=== PATIENT | male | born 1965 | race Caucasian/White ===

== ENCOUNTER 2017-08-15 19:31 | Emergency (ER) | payer MEDICAID ==
[~2017-08-15] VITALS: Wt 72.7 kg
[2017-08-15] MEDS ORDERED: diphenhydrAMINE 50 mg/ml inj IM ONE (19:50)
[2017-08-15] MEDS ORDERED: haloperidol lactate 5mg/ml inj IM ONE (19:50)
[2017-08-15 19:55] LABS: BASOPHILS % (AUTO) 0.4 % (0-1); EOSINOPHILS % (AUTO) 0.3 % (0-6); HEMOGLOBIN 13.8 g/dl (14.0-17.9); LYMPHOCYTES # (AUTO) 1.4 X10'3 (1.1-4.8); LYMPHOCYTES % (AUTO) 17.6 % (21-51); MEAN CORPUSCULAR HEMOGLOBIN 34.4 PG (27.0-31.0); MEAN CORPUSCULAR HGB CONC 35.4 % (33.0-36.5); MEAN CORPUSCULAR VOLUME 97.4 FL (78-98); MEAN PLATELET VOLUME 8.8 FL (7.4-10.4); MONOCYTES # (AUTO) 0.9 X10'3 (0-0.9); NEUTROPHILS # (AUTO) 5.8 X10'3 (1.8-7.7); NEUTROPHILS % (AUTO) 70.7 % (42-75); PLATELET COUNT 259 X10'3 (140-440); RED CELL DISTRIBUTION WIDTH 16.4 % (11.5-14.5); WHITE BLOOD COUNT 8.1 X10'3 (4.5-11.0)
[2017-08-15 20:19] LABS: ALANINE AMINOTRANSFERASE 30 U/L (12-78); ALBUMIN 4.1 G/DL (3.4-5.0); ALBUMIN/GLOBULIN RATIO 1.2 (1.1-1.5); ALKALINE PHOSPHATASE 57 IU/L (46-116); ANION GAP 13 (8-16); ASPARTATE AMINO TRANSFERASE 27 U/L (10-37); BLOOD UREA NITROGEN 26 MG/DL (7-18); BUN/CREATININE RATIO 28.6 (5.4-32.0); CALCIUM 9.4 MG/DL (8.5-10.1); CHLORIDE 100 MMOL/L (99-107); CREATININE 0.91 MG/DL (0.60-1.10); ETHANOL < 0.010 GM/DL (0.0-0.010); GLUCOSE 77 MG/DL (70-104); POTASSIUM 3.8 MMOL/L (3.5-5.1); SODIUM 138 MMOL/L (135-145); TOTAL CARBON DIOXIDE 24.8 MMOL/L (24-32); TOTAL PROTEIN 7.6 G/DL (6.4-8.2); eGFR 88 ML/MIN
[2017-08-15 20:40] LABS: URINE AMPHETAMINE SCREEN NEGATIVE (Neg); URINE BARBITUATE SCREEN NEGATIVE (Neg); URINE BENZODIAZEPINES SCREEN NEGATIVE (Neg); URINE CANNABINOID SCREEN POSITIVE (Neg); URINE COCAINE SCREEN NEGATIVE (Neg); URINE METHADONE SCREEN NEGATIVE (Neg); URINE OPIATE SCREEN NEGATIVE (Neg); URINE PHENCYCLIDINE SCREEN NEGATIVE (Neg)
[2017-08-15] MEDS ORDERED: UNABLE TO OBTAIN (21:05)
[2017-08-16] MEDS ORDERED: LORazepam 1 MG tablet PO PRN (19:40)
[2017-08-18 16:55] VITALS: BP 108/76
== END 2017-08-18 17:01 ==
LOC: ER 19:31
DX: F29 Unspecified psychosis not due to a substance or known physiological condition (principal); S00.81XA Abrasion of other part of head, initial encounter; Z59.0 Homelessness; Z56.0 Unemployment, unspecified; X58.XXXA Exposure to other specified factors, initial encounter; Y93.89 Activity, other specified; Y92.89 Other specified places as the place of occurrence of the external cause; Y99.8 Other external cause status
CPT/HCPCS: 36415; 80053; 80305; 80320; 84443; 85025; 96372; 99285; A4353; J1200; J1630

== ENCOUNTER 2018-05-31 16:30 | Inpatient (IN) | payer MEDICAID | END 2018-06-13 20:24 | disposition still patient (30) | LOC: ADULT MH 16:30 | DX: F23 Brief psychotic disorder (principal); R52 Pain, unspecified ==

== ENCOUNTER 2019-06-06 18:28 | Inpatient (IN) | payer MEDICAID ==
[~2019-06-06] VITALS: Ht 180.3 cm; Wt 81.0 kg
[~2019-06-06 18:28] MED LIST: DIPH50CA3 PO; HALO5TAB PO; RISP4TAB2 PO; etomidate 2mg/ml inj. ONE
--- NOTE | 2019-06-06 19:10 | NUR ---
OUT TO CT ON MONITOR WITH CHRISTIAN ASHBY
[2019-06-06] MEDS ORDERED: iohexol 300mg/ml 100ml inj. ONE (19:11)
[2019-06-06 19:27] LABS: BASOPHILS # (AUTO) 0.1 X10'3 (0-0.2); BASOPHILS % (AUTO) 0.3 % (0-1); EOSINOPHILS % (AUTO) 0.2 % (0-6); HEMATOCRIT 36.8 % (42.0-52.0); HEMOGLOBIN 12.9 g/dl (14.0-17.9); LYMPHOCYTES # (AUTO) 0.8 X10'3 (1.1-4.8); LYMPHOCYTES % (AUTO) 5.4 % (21-51); MEAN CORPUSCULAR HGB CONC 35.1 g/dL (33.0-36.5); MEAN CORPUSCULAR VOLUME 88.4 FL (78-98); MEAN PLATELET VOLUME 9.7 FL (7.4-10.4); MONOCYTES # (AUTO) 1.2 X10'3 (0-0.9); MONOCYTES % (AUTO) 7.5 % (2-12); NEUTROPHILS # (AUTO) 13.6 X10'3 (1.8-7.7); NEUTROPHILS % (AUTO) 86.6 % (42-75); PLATELET COUNT 205 X10'3 (140-440); RED BLOOD COUNT 4.17 X10'6 (4.70-6.10); RED CELL DISTRIBUTION WIDTH 14.3 % (11.5-14.5); WHITE BLOOD COUNT 15.7 X10'3 (4.5-11.0)
[2019-06-06 19:30] LABS: CLARITY,URINE SLIGHTLY CLOUDY (Clear); COLOR,URINE AMBER (Yellow); GLUCOSE, URINE NEGATIVE (Neg); KETONES,URINE 15 mg/dl (Neg); LEUKOCYTE ESTERASE ,URINE NEGATIVE (Neg); NITRITES, URINE NEGATIVE (Neg); OCCULT BLOOD,URINE TRACE-INTACT (Neg); PROTEIN,URINE TRACE mg/dl (Neg); UROBILINOGEN,URINE 0.2 E.U/dL (0.2-1.0)
[2019-06-06 19:31] LABS: UA COLLECTION TYPE STRAIGHT CATH
[2019-06-06 19:32] LABS: URINE AMPHETAMINE SCREEN NEGATIVE (Neg); URINE BARBITUATE SCREEN NEGATIVE (Neg); URINE BENZODIAZEPINES SCREEN NEGATIVE (Neg); URINE CANNABINOID SCREEN POSITIVE (Neg); URINE COCAINE SCREEN NEGATIVE (Neg); URINE METHADONE SCREEN NEGATIVE (Neg); URINE OPIATE SCREEN NEGATIVE (Neg); URINE PHENCYCLIDINE SCREEN NEGATIVE (Neg)
[2019-06-06 19:41] LABS: ALANINE AMINOTRANSFERASE 45 U/L (12-78); ALBUMIN 4.3 G/DL (3.4-5.0); ALBUMIN/GLOBULIN RATIO 1.3 (1.1-1.5); ALKALINE PHOSPHATASE 66 IU/L (46-116); ANION GAP 12 (8-16); ASPARTATE AMINO TRANSFERASE 50 U/L (10-37); BILIRUBIN,TOTAL 0.9 MG/DL (0.1-1.0); BLOOD UREA NITROGEN 26 MG/DL (7-18); BUN/CREATININE RATIO 19.7 (5.4-32.0); CALCIUM 9.5 MG/DL (8.5-10.1); CHLORIDE 100 MMOL/L (99-107); CREATININE 1.32 MG/DL (0.60-1.10); GLUCOSE 176 MG/DL (70-104); POTASSIUM 3.2 MMOL/L (3.5-5.1); SODIUM 139 MMOL/L (135-145); TOTAL CARBON DIOXIDE 27.3 MMOL/L (24-32); TOTAL PROTEIN 7.7 G/DL (6.4-8.2); eGFR 57 ML/MIN
[2019-06-06 19:43] LABS: CREATINE KINASE 790 U/L (39-308); ETHANOL < 0.010 GM/DL (0.0-0.010); TROPONIN I < 0.04 NG/ML (0.0-0.05)
[2019-06-06 19:50] LABS: BACTERIA,URINE NONE SEEN /HPF (Neg); HYALINE CASTS 0-3 /LPF (NEGATIVE); MUCUS STRANDS MODERATE /LPF (Neg); SQUAMOUS EPITHELIAL CELL,UR FEW /LPF (FEW); WBC,URINE 0-4 /HPF (0-4)
[2019-06-06] MEDS ORDERED: normal saline 1000ML IV soln IVB ONE (19:50)
--- NOTE | 2019-06-06 19:55 | NUR ---
PT GIVEN MULTIPLE WARM BLANKETS AND POSITIONED TO COMFORT. WILL CONTINUE TO MONITOR
[2019-06-06] MEDS ORDERED: ketamine 50 mg/ml 10ml vial IV ONE ×2 (20:10→20:20)
[2019-06-06] MEDS ORDERED: LIDOcaine 1.5% w/epinephrine 1:200,000 5ml ampul IJ ONE (20:10)
[2019-06-06] MEDS ORDERED: ketamine 10mg/ml 20ml inj IV ONE (20:15)
[2019-06-06] MEDS ORDERED: LIDOcaine 1% W/epiNEPHrine 1:200,000 10ml vial IJ ONE (20:15)
[2019-06-06] MEDS ORDERED: hydrOXYzine 25 MG tablet PO ONE (20:55)
[2019-06-06] MEDS ORDERED: LORazepam 1 MG tablet PO ONE (20:55)
--- NOTE | 2019-06-06 21:22 | NUR ---
PT HAS REFUSED TO GIVE INFORMATION WHEN ASKED ALTHOUGH HE IS ABLE. ASSESSMENT INVOLVING PT FEEDBACK DIFFICULT TO OBTAIN. PT APPEARS ORIENTED AFTER MOD SEDATION, BUT DOES NOT FOLLOW INSTRUCTIONS TO HOLD STILL
[2019-06-06] MEDS ORDERED: LORazepam 2 mg/ml vial IV ONE (21:25)
[2019-06-06] MEDS ORDERED: haloperidol lactate 5mg/ml inj IM ONE (21:25)
[2019-06-06] MEDS ORDERED: fentaNYL/PF 50MCG/1 ML 2ML syringe IV ONE (21:25)
[2019-06-06] MEDS ORDERED: LORazepam 2 mg/ml vial ONE (21:27)
[2019-06-06] MEDS ORDERED: DIPH-423 PO (22:37)
[2019-06-06] MEDS ORDERED: RISP4TAB2 PO (22:37)
[2019-06-06] MEDS ORDERED: HALO5TAB PO (22:37)
[2019-06-06] MEDS ORDERED: acetaminophen 325mg tablet PO PRN (23:05)
[2019-06-06] MEDS ORDERED: haloperidol lactate 5mg/ml inj IM PRN (23:05)
[2019-06-06] MEDS ORDERED: ondansetron/PF 4mg/2ml inj IV PRN (23:05)
[2019-06-06] MEDS ORDERED: LORazepam 2 mg/ml vial IV PRN (23:05)
[2019-06-06] MEDS ORDERED: morphine 2 MG/ML inj. syringe IV PRN (23:05)
[2019-06-06] MEDS ORDERED: mag hydrox/Alum hydrox/simeth 30ml oral suspension PO PRN (23:05)
--- NOTE | 2019-06-06 23:32 | NUR ---
Patient in room . I have received report from Bety ED RN and had the opportunity to ask questions and assume patient care.
[2019-06-07 00:10] VITALS: BP 110/81
--- NOTE | 2019-06-07 00:38 | NUR ---
Bladder scan performed, more than [address] Mcelroy and received order to place grijalva. Order placed.
--- NOTE | 2019-06-07 01:30 | NUR ---
16 Fr. grijalva placed, 1275 mL shi, clear, no odor urine into bag. Pt tolerated well. Will continue to monitor patient.
[2019-06-07] MEDS: potassium Cl 20mEq in NS 1,000 ML IV SCH ×3 (01:57→19:02)
--- NOTE | 2019-06-07 06:44 | NUR ---
Problems reprioritized. Patient report given, questions answered & plan of care reviewed with SYMONE Yao.
[2019-06-07 07:30] VITALS: BP 110/80
[2019-06-07 07:34] LABS: HEMOGLOBIN 13.1 g/dl (14.0-17.9); WHITE BLOOD COUNT 9.7 X10'3 (4.5-11.0)
[2019-06-07 07:48] LABS: ALANINE AMINOTRANSFERASE 37 U/L (12-78); ALBUMIN 3.7 G/DL (3.4-5.0); ALBUMIN/GLOBULIN RATIO 1.2 (1.1-1.5); ALKALINE PHOSPHATASE 61 IU/L (46-116); ANION GAP 11 (8-16); ASPARTATE AMINO TRANSFERASE 64 U/L (10-37); BILIRUBIN,TOTAL 1.2 MG/DL (0.1-1.0); BLOOD UREA NITROGEN 17 MG/DL (7-18); BUN/CREATININE RATIO 18.5 (5.4-32.0); CALCIUM 8.4 MG/DL (8.5-10.1); CHLORIDE 103 MMOL/L (99-107); CREATININE 0.92 MG/DL (0.60-1.10); GLUCOSE 81 MG/DL (70-104); POTASSIUM 3.4 MMOL/L (3.5-5.1); SODIUM 141 MMOL/L (135-145); TOTAL CARBON DIOXIDE 26.6 MMOL/L (24-32); TOTAL PROTEIN 6.8 G/DL (6.4-8.2); eGFR 86 ML/MIN
[2019-06-07 07:50] LABS: HEMATOCRIT 37.3 % (42.0-52.0); MEAN CORPUSCULAR HEMOGLOBIN 31.4 PG (27.0-31.0); MEAN CORPUSCULAR HGB CONC 35.1 g/dL (33.0-36.5); MEAN CORPUSCULAR VOLUME 89.6 FL (78-98); MEAN PLATELET VOLUME 9.2 FL (7.4-10.4); PLATELET COUNT 151 X10'3 (140-440); RED BLOOD COUNT 4.16 X10'6 (4.70-6.10)
[2019-06-07 08:12] LABS: ANISOCYTOSIS 1+; PLATELET ESTIMATE NORMAL; TOTAL CELLS COUNTED 100
[2019-06-07] MEDS: morphine 2 MG/ML inj. syringe IV PRN ×4 (08:13→22:51)
[2019-06-07 11:30] VITALS: BP 117/72
[2019-06-07 18:15] VITALS: BP 141/56
--- NOTE | 2019-06-07 18:30 | NUR ---
Patient in room [facility]. I have received report from SYMONE Yao and had the opportunity to ask questions and assume patient care.
--- NOTE | 2019-06-07 18:35 | NUR ---
Problems reprioritized. Patient report given, questions answered & plan of care reviewed with SYMONE Sutherland.
[2019-06-07] MEDS: magnesium hydroxide 30ml (MOM) UD suspension PO PRN (20:08)
--- NOTE | 2019-06-08 | NUR ---
Called MD to request to look at recent chest xray and compare with yesterday AM chest xray as patient has crepitus not only to ant/pos R shoulder but around the chest tube site. MD spoke with charge and stated that there was no new orders/ Addendum: 06/09/19 at 0722 by Jhoana Holbrook RN Patient was not and still is not exhibiting any signs of SOB/respiratory distress.
[2019-06-08 00:15] VITALS: BP 120/90
[2019-06-08] MEDS: potassium Cl 20mEq in NS 1,000 ML IV SCH (00:44)
[2019-06-08] MEDS: morphine 2 MG/ML inj. syringe IV PRN ×4 (05:12→21:02)
[2019-06-08 05:38] LABS: ALANINE AMINOTRANSFERASE 28 U/L (12-78); ALBUMIN/GLOBULIN RATIO 1.1 (1.1-1.5); ALKALINE PHOSPHATASE 52 IU/L (46-116); ANION GAP 8 (8-16); ASPARTATE AMINO TRANSFERASE 46 U/L (10-37); BILIRUBIN,TOTAL 0.7 MG/DL (0.1-1.0); BLOOD UREA NITROGEN 15 MG/DL (7-18); BUN/CREATININE RATIO 19.2 (5.4-32.0); CALCIUM 7.9 MG/DL (8.5-10.1); CHLORIDE 105 MMOL/L (99-107); CREATININE 0.78 MG/DL (0.60-1.10); GLUCOSE 108 MG/DL (70-104); POTASSIUM 3.2 MMOL/L (3.5-5.1); SODIUM 139 MMOL/L (135-145); TOTAL CARBON DIOXIDE 26.3 MMOL/L (24-32); TOTAL PROTEIN 5.8 G/DL (6.4-8.2); eGFR > 90 ML/MIN
--- NOTE | 2019-06-08 05:47 | NUR ---
Patient has not voided since FC was DC at 06/08/19 at 0016. Instructed pt multiple times to use urinal after FC was DC. Bladder scan performed, 447 mL. Pt states that he is in pain due to chest tube in place and has not been attempting to use urinal. Pain medication has been administered. Pt understands that he needs to urine and will attempt to use urinal at this time. Will continue to monitor pt.
[2019-06-08 05:56] LABS: BASOPHILS % (AUTO) 0.2 % (0-1); EOSINOPHILS # (AUTO) 0.1 X10'3 (0-0.9); EOSINOPHILS % (AUTO) 1.6 % (0-6); HEMOGLOBIN 11.3 g/dl (14.0-17.9); LYMPHOCYTES # (AUTO) 0.9 X10'3 (1.1-4.8); LYMPHOCYTES % (AUTO) 11.8 % (21-51); MEAN CORPUSCULAR HEMOGLOBIN 31.8 PG (27.0-31.0); MEAN CORPUSCULAR HGB CONC 35.5 g/dL (33.0-36.5); MEAN CORPUSCULAR VOLUME 89.5 FL (78-98); MEAN PLATELET VOLUME 10.1 FL (7.4-10.4); MONOCYTES # (AUTO) 0.7 X10'3 (0-0.9); MONOCYTES % (AUTO) 9.2 % (2-12); NEUTROPHILS % (AUTO) 77.2 % (42-75); PLATELET COUNT 124 X10'3 (140-440); RED BLOOD COUNT 3.57 X10'6 (4.70-6.10); RED CELL DISTRIBUTION WIDTH 13.8 % (11.5-14.5); WHITE BLOOD COUNT 7.8 X10'3 (4.5-11.0)
--- NOTE | 2019-06-08 06:15 | NUR ---
Problems reprioritized. Patient report given, questions answered & plan of care reviewed with SYMONE Yao.
--- NOTE | 2019-06-08 06:30 | NUR ---
Patient in room [facility]. I have received report from SYMONE Sutherland and had the opportunity to ask questions and assume patient care.
[2019-06-08 07:08] VITALS: BP 93/50
--- NOTE | 2019-06-08 09:13 | NUR ---
pt reporting having trouble urinating, pt able to urinate 250 in urinal, bladder scan now shows 164-will continue to monitor.
--- NOTE | 2019-06-08 09:50 | NUR ---
Notified Dr. Nieves pt's potassium level 3.2 and no K replacement ordered to give. Patient has NS20K running at 100 cc/hr. awaiting orders.
[2019-06-08 11:00] VITALS: BP 101/64
[2019-06-08 11:16] VITALS: BP 101/64
[2019-06-08] MEDS ORDERED: magnesium 4gm in 100ml NS 100 ML IV PRN (12:20)
[2019-06-08] MEDS ORDERED: potassium CL 10mEq/100ml bag 100 ML IV PRN (12:20)
[2019-06-08] MEDS ORDERED: magnesium Cl slow-release 64mg tablet PO PRN (12:20)
[2019-06-08] MEDS ORDERED: potassium Cl 20 mEq SR tablet PO PRN (12:20)
[2019-06-08] MEDS: potassium Cl 20 mEq SR tablet PO PRN ×2 (12:28→20:53)
[2019-06-08] MEDS: normal saline 1000ml 1,000 ML IV SCH ×2 (12:47→20:52)
[2019-06-08] MEDS: HYDROcodone/acetaminophen 10/325mg tab PO PRN ×2 (13:53→20:55)
[2019-06-08] MEDS: magnesium hydroxide 30ml (MOM) UD suspension PO PRN (15:48)
--- NOTE | 2019-06-08 18:20 | NUR ---
Patient in room [facility]. I have received report from Bernice ASHBY and had the opportunity to ask questions and assume patient care.
[2019-06-08 18:30] VITALS: BP 125/84
--- NOTE | 2019-06-08 18:30 | NUR ---
Problems reprioritized. Patient report given, questions answered & plan of care reviewed with SYMONE Ely.
[2019-06-09] VITALS: BP 120/79
[2019-06-09] MEDS: potassium Cl 20 mEq SR tablet PO PRN (03:17)
[2019-06-09 06:10] LABS: ALANINE AMINOTRANSFERASE 27 U/L (12-78); ALKALINE PHOSPHATASE 55 IU/L (46-116); ANION GAP 4 (8-16); ASPARTATE AMINO TRANSFERASE 36 U/L (10-37); BILIRUBIN,TOTAL 0.5 MG/DL (0.1-1.0); BLOOD UREA NITROGEN 12 MG/DL (7-18); BUN/CREATININE RATIO 13.2 (5.4-32.0); CALCIUM 8.3 MG/DL (8.5-10.1); CHLORIDE 106 MMOL/L (99-107); CREATININE 0.91 MG/DL (0.60-1.10); GLUCOSE 83 MG/DL (70-104); POTASSIUM 3.6 MMOL/L (3.5-5.1); SODIUM 140 MMOL/L (135-145); TOTAL CARBON DIOXIDE 30.2 MMOL/L (24-32); TOTAL PROTEIN 6.1 G/DL (6.4-8.2); eGFR 87 ML/MIN
--- NOTE | 2019-06-09 06:22 | NUR ---
Reported off to Pilar RN
[2019-06-09 06:30] VITALS: BP 127/90
--- NOTE | 2019-06-09 06:35 | NUR ---
Patient in room [facility]. I have received report from SYMONE Ely and had the opportunity to ask questions and assume patient care.
[2019-06-09 06:57] LABS: BASOPHILS % (AUTO) 0.3 % (0-1); EOSINOPHILS # (AUTO) 0.1 X10'3 (0-0.9); EOSINOPHILS % (AUTO) 2.2 % (0-6); HEMATOCRIT 32.4 % (42.0-52.0); HEMOGLOBIN 11.5 g/dl (14.0-17.9); LYMPHOCYTES # (AUTO) 0.9 X10'3 (1.1-4.8); LYMPHOCYTES % (AUTO) 13.5 % (21-51); MEAN CORPUSCULAR HEMOGLOBIN 31.9 PG (27.0-31.0); MEAN CORPUSCULAR HGB CONC 35.5 g/dL (33.0-36.5); MEAN PLATELET VOLUME 9.9 FL (7.4-10.4); MONOCYTES # (AUTO) 0.6 X10'3 (0-0.9); MONOCYTES % (AUTO) 9.2 % (2-12); NEUTROPHILS # (AUTO) 4.9 X10'3 (1.8-7.7); NEUTROPHILS % (AUTO) 74.8 % (42-75); PLATELET COUNT 146 X10'3 (140-440); RED BLOOD COUNT 3.59 X10'6 (4.70-6.10); RED CELL DISTRIBUTION WIDTH 13.8 % (11.5-14.5); WHITE BLOOD COUNT 6.5 X10'3 (4.5-11.0)
[2019-06-09] MEDS: normal saline 1000ml 1,000 ML IV SCH ×2 (07:04→17:32)
[2019-06-09] MEDS: HYDROcodone/acetaminophen 10/325mg tab PO PRN ×3 (09:31→19:48)
[2019-06-09] MEDS ORDERED: pneumococcal 23-VAL P-sac vacc 25 mcg/0.5ml vial IMVAC ONE (10:00)
[2019-06-09] MEDS: magnesium hydroxide 30ml (MOM) UD suspension PO PRN (10:36)
[2019-06-09 11:00] VITALS: BP 131/87
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
--- NOTE | 2019-06-09 18:30 | NUR ---
Problems reprioritized. Patient report given, questions answered & plan of care reviewed with SYMONE Ely.
--- NOTE | 2019-06-09 18:40 | NUR ---
Patient in room [facility]. I have received report from Pilar ASHBY and had the opportunity to ask questions and assume patient care.
[2019-06-09 19:00] VITALS: BP 141/94
--- NOTE | 2019-06-09 20:26 | NUR ---
Surgeon cali. Informed of pt. still having sonia and stated "put chest tube back on 20cm suction. Addendum: 06/09/19 at 2027 by Jhoana Holbrook RN chest xray in AM Addendum: 06/09/19 at 2031 by Jhoana Holbrook RN reviewed xray, and now says to keep chest tube to water seal.
[2019-06-10] VITALS: BP 132/89
[2019-06-10] MEDS: normal saline 1000ml 1,000 ML IV SCH ×2 (02:38→11:42)
[2019-06-10] MEDS: HYDROcodone/acetaminophen 10/325mg tab PO PRN ×4 (02:41→20:09)
[2019-06-10 06:23] LABS: BASOPHILS % (AUTO) 0.5 % (0-1); EOSINOPHILS # (AUTO) 0.1 X10'3 (0-0.9); EOSINOPHILS % (AUTO) 2.1 % (0-6); HEMATOCRIT 32.5 % (42.0-52.0); HEMOGLOBIN 11.5 g/dl (14.0-17.9); LYMPHOCYTES # (AUTO) 1.1 X10'3 (1.1-4.8); MEAN CORPUSCULAR HEMOGLOBIN 31.6 PG (27.0-31.0); MEAN CORPUSCULAR HGB CONC 35.3 g/dL (33.0-36.5); MEAN CORPUSCULAR VOLUME 89.3 FL (78-98); MEAN PLATELET VOLUME 9.9 FL (7.4-10.4); MONOCYTES # (AUTO) 0.5 X10'3 (0-0.9); MONOCYTES % (AUTO) 9.5 % (2-12); NEUTROPHILS # (AUTO) 3.9 X10'3 (1.8-7.7); NEUTROPHILS % (AUTO) 68.9 % (42-75); PLATELET COUNT 179 X10'3 (140-440); RED BLOOD COUNT 3.64 X10'6 (4.70-6.10); RED CELL DISTRIBUTION WIDTH 13.8 % (11.5-14.5); WHITE BLOOD COUNT 5.7 X10'3 (4.5-11.0)
--- NOTE | 2019-06-10 06:25 | NUR ---
Patient in room [facility]. I have received report from SYMONE PADILLA and had the opportunity to ask questions and assume patient care.
[2019-06-10 06:38] LABS: ALANINE AMINOTRANSFERASE 25 U/L (12-78); ALBUMIN 2.8 G/DL (3.4-5.0); ALBUMIN/GLOBULIN RATIO 0.8 (1.1-1.5); ALKALINE PHOSPHATASE 56 IU/L (46-116); ANION GAP 8 (8-16); ASPARTATE AMINO TRANSFERASE 29 U/L (10-37); BILIRUBIN,TOTAL 0.4 MG/DL (0.1-1.0); BLOOD UREA NITROGEN 8 MG/DL (7-18); BUN/CREATININE RATIO 9.1 (5.4-32.0); CALCIUM 8.4 MG/DL (8.5-10.1); CHLORIDE 105 MMOL/L (99-107); CREATININE 0.88 MG/DL (0.60-1.10); GLUCOSE 91 MG/DL (70-104); POTASSIUM 3.8 MMOL/L (3.5-5.1); SODIUM 139 MMOL/L (135-145); TOTAL CARBON DIOXIDE 26.4 MMOL/L (24-32); TOTAL PROTEIN 6.1 G/DL (6.4-8.2); eGFR > 90 ML/MIN
--- NOTE | 2019-06-10 06:40 | NUR ---
Problems reprioritized. Patient report given, questions answered & plan of care reviewed with Luz ASHBY.
--- NOTE | 2019-06-10 06:45 | NUR ---
There is no new drainage to chest tube, but some noted to tubing(sero sanguinous).. Addendum: 06/10/19 at 0709 by Jhoana Holbrook RN Amended: Links added.
[2019-06-10 07:00] VITALS: BP 130/89
[2019-06-10] MEDS ORDERED: pneumococcal 23-VAL P-sac vacc 25 mcg/0.5ml vial IMVAC ONE (10:00)
[2019-06-10 11:00] VITALS: BP 130/78
--- NOTE | 2019-06-10 18:35 | NUR ---
Patient in room [facility]. I have received report from Luz ASHBY and had the opportunity to ask questions and assume patient care.
[2019-06-10 19:00] VITALS: BP 134/74
[2019-06-11] VITALS: BP 134/98
[2019-06-11] MEDS: HYDROcodone/acetaminophen 10/325mg tab PO PRN ×3 (00:30→21:47)
--- NOTE | 2019-06-11 06:09 | NUR ---
No new drainage added to cannister, it is currently still in the tubing.
--- NOTE | 2019-06-11 06:40 | NUR ---
Patient in room [facility]. I have received report from SYMONE PADILLA and had the opportunity to ask questions and assume patient care.
[2019-06-11 07:00] VITALS: BP 127/88
[2019-06-11 07:09] LABS: BASOPHILS # (AUTO) 0.1 X10'3 (0-0.2); BASOPHILS % (AUTO) 0.9 % (0-1); EOSINOPHILS # (AUTO) 0.2 X10'3 (0-0.9); EOSINOPHILS % (AUTO) 2.7 % (0-6); HEMATOCRIT 35.9 % (42.0-52.0); HEMOGLOBIN 12.4 g/dl (14.0-17.9); LYMPHOCYTES # (AUTO) 1.2 X10'3 (1.1-4.8); LYMPHOCYTES % (AUTO) 18.1 % (21-51); MEAN CORPUSCULAR HEMOGLOBIN 31.5 PG (27.0-31.0); MEAN CORPUSCULAR HGB CONC 34.6 g/dL (33.0-36.5); MEAN CORPUSCULAR VOLUME 90.8 FL (78-98); MEAN PLATELET VOLUME 8.8 FL (7.4-10.4); MONOCYTES # (AUTO) 0.9 X10'3 (0-0.9); MONOCYTES % (AUTO) 14.1 % (2-12); NEUTROPHILS # (AUTO) 4.3 X10'3 (1.8-7.7); NEUTROPHILS % (AUTO) 64.2 % (42-75); PLATELET COUNT 257 X10'3 (140-440); RED BLOOD COUNT 3.95 X10'6 (4.70-6.10); RED CELL DISTRIBUTION WIDTH 14.6 % (11.5-14.5); WHITE BLOOD COUNT 6.7 X10'3 (4.5-11.0)
[2019-06-11 07:29] LABS: ALANINE AMINOTRANSFERASE 22 U/L (12-78); ALBUMIN 3.1 G/DL (3.4-5.0); ALBUMIN/GLOBULIN RATIO 0.8 (1.1-1.5); ALKALINE PHOSPHATASE 62 IU/L (46-116); ANION GAP 7 (8-16); ASPARTATE AMINO TRANSFERASE 23 U/L (10-37); BILIRUBIN,TOTAL 0.5 MG/DL (0.1-1.0); BLOOD UREA NITROGEN 8 MG/DL (7-18); BUN/CREATININE RATIO 8.3 (5.4-32.0); CALCIUM 8.9 MG/DL (8.5-10.1); CHLORIDE 104 MMOL/L (99-107); CREATININE 0.96 MG/DL (0.60-1.10); GLUCOSE 80 MG/DL (70-104); SODIUM 139 MMOL/L (135-145); TOTAL CARBON DIOXIDE 27.6 MMOL/L (24-32); TOTAL PROTEIN 6.8 G/DL (6.4-8.2); eGFR 82 ML/MIN
[2019-06-11 12:42] VITALS: BP 134/80
--- NOTE | 2019-06-11 18:30 | NUR ---
Patient in room [facility] 358. I have received report from SYMONE Escobar and had the opportunity to ask questions and assume patient care.
--- NOTE | 2019-06-11 18:35 | NUR ---
Problems reprioritized. Patient report given, questions answered & plan of care reviewed with SYMONE STANFORD.
--- NOTE | 2019-06-11 19:15 | NUR ---
Patient is refusing his PNA vaccine until right before he gets discharged.
[2019-06-11 20:00] VITALS: BP 127/88
[2019-06-12] VITALS: BP 122/80
--- NOTE | 2019-06-12 06:22 | NUR ---
Problems reprioritized. Patient report given, questions answered & plan of care reviewed with SYMONE Fernandez.
--- NOTE | 2019-06-12 06:23 | NUR ---
Patient in room [facility] 358. I have received report from SYMONE Terry and had the opportunity to ask questions and assume patient care.
[2019-06-12 07:00] VITALS: BP 117/79
[2019-06-12 11:00] VITALS: BP 106/66
--- NOTE | 2019-06-12 18:37 | NUR ---
Problems reprioritized. Patient report given, questions answered & plan of care reviewed with SYMONE Hernandes.
[2019-06-12] MEDS: HYDROcodone/acetaminophen 10/325mg tab PO PRN ×2 (18:52→22:54)
[2019-06-12 19:00] VITALS: BP 107/76
[2019-06-13] VITALS: BP 114/75
--- NOTE | 2019-06-13 02:05 | NUR ---
Mulu from [facility] regarding pts admission. Questions were answered to the best of nurses ability. They will be needing UA, tox UA and TSH to assist in admission. Addendum: 06/13/19 at 0214 by Greta Cadet RN Amended: Links added.
[2019-06-13] MEDS: HYDROcodone/acetaminophen 10/325mg tab PO PRN ×3 (04:12→14:53)
[2019-06-13 05:02] LABS: CLARITY,URINE CLEAR (Clear); GLUCOSE, URINE NEGATIVE (Neg); KETONES,URINE NEGATIVE (Neg); LEUKOCYTE ESTERASE ,URINE NEGATIVE (Neg); NITRITES, URINE NEGATIVE (Neg); OCCULT BLOOD,URINE NEGATIVE (Neg); PROTEIN,URINE NEGATIVE (Neg); URINE AMPHETAMINE SCREEN NEGATIVE (Neg); URINE BARBITUATE SCREEN NEGATIVE (Neg); URINE BENZODIAZEPINES SCREEN NEGATIVE (Neg); URINE CANNABINOID SCREEN NEGATIVE (Neg); URINE COCAINE SCREEN NEGATIVE (Neg); URINE METHADONE SCREEN NEGATIVE (Neg); URINE OPIATE SCREEN POSITIVE (Neg); URINE PHENCYCLIDINE SCREEN NEGATIVE (Neg); UROBILINOGEN,URINE 0.2 E.U/dL (0.2-1.0)
[2019-06-13 05:26] LABS: COLOR,URINE STRAW (Yellow); UA COLLECTION TYPE NON-SPECIFIED
--- NOTE | 2019-06-13 06:41 | NUR ---
Problems reprioritized. Patient report given, questions answered & plan of care reviewed with Sandie ASHBY. Addendum: 06/13/19 at 0642 by Greta Cadet RN Amended: Links added.
--- NOTE | 2019-06-13 06:45 | NUR ---
Patient in room [facility] 358. I have received report from Greta ASHBY and had the opportunity to ask questions and assume patient care.
[2019-06-13 08:00] VITALS: BP 121/77
[2019-06-13 12:30] VITALS: BP 126/89
[2019-06-13 13:45] LABS: BASOPHILS # (AUTO) 0.1 X10'3 (0-0.2); BASOPHILS % (AUTO) 0.9 % (0-1); EOSINOPHILS # (AUTO) 0.1 X10'3 (0-0.9); EOSINOPHILS % (AUTO) 1.6 % (0-6); HEMATOCRIT 40.1 % (42.0-52.0); HEMOGLOBIN 13.9 g/dl (14.0-17.9); LYMPHOCYTES # (AUTO) 1.5 X10'3 (1.1-4.8); LYMPHOCYTES % (AUTO) 17.1 % (21-51); MEAN CORPUSCULAR HEMOGLOBIN 31.4 PG (27.0-31.0); MEAN CORPUSCULAR HGB CONC 34.7 g/dL (33.0-36.5); MEAN CORPUSCULAR VOLUME 90.5 FL (78-98); MONOCYTES # (AUTO) 1.1 X10'3 (0-0.9); MONOCYTES % (AUTO) 12.4 % (2-12); PLATELET COUNT 383 X10'3 (140-440); RED BLOOD COUNT 4.43 X10'6 (4.70-6.10); RED CELL DISTRIBUTION WIDTH 14.1 % (11.5-14.5); WHITE BLOOD COUNT 8.9 X10'3 (4.5-11.0)
--- NOTE | 2019-06-13 15:05 | NUR ---
Received report from Cha around 1300 stating pt has been approved for [facility] in [place] at 1200, and Dr Bridges will be pt attending physician. Pt D/C'd by Dr Chávez. Pt uncooperative with discharge routine. 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 left the floor on wheel chair escorted by security.
== END 2019-06-13 15:14 | DRG 135 ==
LOC: ER 18:28 → ED HOLD 23:05 → EDBEDREQ 23:48 → SUR 3N 23:50
PROVIDERS: ADMIT Internal Medicine; ATTEND Internal Medicine
PROC: 0W9930Z Drainage of Right Pleural Cavity with Drainage Device, Percutaneous Approach (ICD-10-PCS; principal; 2019-06-06)
PROC: 3E0234Z Introduction of Serum, Toxoid and Vaccine into Muscle, Percutaneous Approach (ICD-10-PCS; 2019-06-10)
DX: S27.2XXA Traumatic hemopneumothorax, initial encounter (principal); S22.41XA Multiple fractures of ribs, right side, initial encounter for closed fracture; F29 Unspecified psychosis not due to a substance or known physiological condition; Y04.2XXA Assault by strike against or bumped into by another person, initial encounter; T79.7XXA Traumatic subcutaneous emphysema, initial encounter; Z60.2 Problems related to living alone; E87.6 Hypokalemia; Z59.0 Homelessness; Z23 Encounter for immunization; Y93.89 Activity, other specified; Y92.89 Other specified places as the place of occurrence of the external cause; Y99.8 Other external cause status; Z78.1 Physical restraint status
CPT/HCPCS: 36415; 36556; 70450; 71045; 71260; 72125; 74177; 80053; 80305; 80320; 81001; 81003; 82550; 84443; 84484; 85025; 85610; 86885; 86900; 86901; 87081; 90732; 93005; 96372; 96374; 99291; G0378; J1630; J2060; J2270; J3010; J3480; J7030; Q9967; Z7610